=== PATIENT | male | born 1940 | race Caucasian/White ===

== ENCOUNTER 2018-06-25 06:46 | Inpatient (IN) ==
[2018-06-25 09:40] LABS: INR 0.89; PROTIME 12.8 Seconds (11.0-16.0)
--- NOTE | 2018-06-25 10:50 | Diag Imaging Result Doc PS360 ---
EXAM: CHEST-2 VIEWS 06/25/2018 HISTORY: POST BIOPSY TECHNIQUE: Expiratory chest COMMENT: There is a fairly decent sized pneumothorax on the left which on the inspiratory view measures in excess of 6.5 cm from the apex. There is also some atelectasis and possible hemorrhage within the left upper lobe. No apparent pleural fluid collections are present. IMPRESSION: Left pneumothorax. This report was discussed with Dr. Emily Olivier on 06/25/2018 at 1046 and was readback. Electronically signed by Flip Chaves 06/25/2018 10:48 AM
--- NOTE | 2018-06-25 11:02 | Diag Imaging Result Doc PS360 ---
EXAM: CT GUIDED BIOPSY LUNG 06/25/2018 HISTORY: BX HEATHER TECHNIQUE: CT-guided biopsy of the left upper lobe COMMENT: The risks and benefits of the procedure including the possibility of bleeding, infection, reaction to lidocaine, and pneumothorax was discussed with the patient and he agreed to the procedure. Following sterile preparation of the skin anterolaterally in the left chest and administration 1% lidocaine to the skin and deeper soft tissues, a coaxial 20-gauge core biopsy needle was employed to obtain four cores from the nodule in the left upper lobe. The procedure was complicated with a pneumothorax which was evident on the postprocedural radiographs. Otherwise the patient tolerated the procedure well. IMPRESSION: Successful CT-guided biopsy of the left upper lobe complicated by pneumothorax. Electronically signed by Flip Chaves 06/25/2018 11:00 AM
[2018-06-25] MEDS ORDERED: ZOFRAN IV PRN (11:55)
[2018-06-25] MEDS ORDERED: NORCO-7.5 PO PRN (11:55)
[2018-06-25] MEDS ORDERED: TYLENOL PO PRN (11:55)
[2018-06-25 12:19] LABS: BASO# 0.05 X1000 (0.0-0.2); BASO% 0.9 % (0.0-0.8); EOS# 0.15 X1000 (0.0-0.7); EOS% 2.6 % (0.0-10.0); HEMATOCRIT 41.2 % (42.0-52.0); HEMOGLOBIN 13.7 g/dL (14.0-18.0); IMM GRAN# 0.02 X1000 (0.0-0.04); IMM GRAN% 0.3 % (0.0-0.5); LYMPH# 1.36 X1000 (1.2-3.4); LYMPH% 23.3 % (20.5-51.1); MCH 32.2 PG (27-31); MCHC 33.3 g/dL (33-37); MCV 96.7 FL (81-99); MONO# 0.67 X1000 (0.11-0.59); MONO% 11.5 % (1.7-9.3); MPV 9.5 FL (7.4-10.4); NEUT# 3.59 X1000 (1.4-6.5); NEUT% 61.4 % (42.2-75.2); PLT 226 X1000 (130-400); RBC 4.26 XMIL (4.7-6.1); RDW 13.6 % (11.5-14.5); WBC 5.84 X1000 (4.8-10.8)
--- NOTE | 2018-06-25 12:25 | GENERAL SURGERY CONSULTATION ---
DATE: 06/25/2018 REQUESTING PHYSICIAN: Hospitalist. REASON FOR CONSULTATION: Left pneumothorax status post CT-guided lung biopsy. BRIEF HISTORY: A 77-year-old male who had abnormal chest CT scan and chest x-ray that showed a mass in his left lung. He came for a CT-guided biopsy. He did develop a pneumothorax that is expanding. It was felt that he needed a chest tube placement. The risks, benefits, and alternatives were discussed. All questions answered. PAST MEDICAL HISTORY: Includes 1. Benign prostatic hypertrophy. 2. Chronic obstructive pulmonary disease. 3. Lung mass. PAST SURGICAL HISTORY: Includes bilateral cataracts. FAMILY HISTORY: Reviewed with the patient and noncontributory. SOCIAL HISTORY: Smoker. CURRENT MEDICATIONS: Reviewed. ALLERGIES: None. REVIEW OF SYSTEMS: A full 10 point review of systems obtained, negative as specified in HPI. PHYSICAL EXAMINATION: Vital Signs: The patient is currently afebrile. His vital signs are stable. General: No acute distress. male, looks stated age. HEENT: Normocephalic, atraumatic. Pupils equal, round, react to light. Mucous membranes moist. Oropharynx benign. Neck: Supple. Trachea midline. Cardiovascular: Regular rate and rhythm. Lungs: Decreased breath sounds noted on the left. Abdomen: Soft, nontender, nondistended. Extremities: Moves all extremities. Neurologic: Grossly intact. Skin: No signs of jaundice. Vascular: All extremities perfused. LABORATORY: None. Chest x-ray reviewed and CT scan reviewed, left pneumothorax. ASSESSMENT AND PLAN: A 77-year-old with left pneumothorax. At this time, we will place a chest tube. Discussed the risks, benefits, and alternatives. We will get consent. cc: Daryl Valentine MD
--- NOTE | 2018-06-25 12:26 | Diag Imaging Result Doc PS360 ---
EXAM: CHEST-PORTABLE 06/25/2018 HISTORY: POST OP LUNG TECHNIQUE: AP portable erect at 1215 COMMENT: There is a small caliber tube placed in the left pleural space with near complete evacuation of the pneumothorax which was previously present. There is residual increased density throughout the left upper lobe which may be result of hemorrhage. Otherwise the appearance of the chest has not changed significantly since the previous examination. IMPRESSION: Near resolution of left pneumothorax. Electronically signed by Flip Chaves 06/25/2018 12:24 PM
[2018-06-25 12:30] LABS: INR 0.93; PROTIME 13.3 Seconds (11.0-16.0); PTT 35.7 Seconds (22.3-41.8)
--- NOTE | 2018-06-25 12:33 | OPERATIVE NOTE ---
PROCEDURE DATE: 06/25/2018 PREOPERATIVE DIAGNOSIS: Left pneumothorax. POSTOPERATIVE DIAGNOSIS: Left pneumothorax. PROCEDURES: Placement of left chest tube (8-Green[place]ic chest tube). SURGEON: Daryl Valentine MD. ENVIRONMENTAL MONITORING SPECIALIST: None. ANESTHESIA: Local administered by the surgeon. INTRAOPERATIVE FINDINGS: As dictated. COMPLICATIONS: None at the time of dictation. ESTIMATED BLOOD LOSS: 2 mL. SPECIMENS REMOVED: None. BRIEF HISTORY: 77-year-old who had a pneumothorax after CT-guided biopsy felt he needed a chest tube. The risks, benefits, and alternatives were discussed. All questions answered. DESCRIPTION OF PROCEDURE: After informed consent was obtained, patient remained in the PACU holding area. His left chest was prepped and draped in sterile fashion after a formal time-out confirming patient, date and procedure. We turned our attention to the left chest wall. We prepped and draped this area in a sterile fashion. Under local anesthetic I made a small stab incision in the 5th intercostal space, directed the needle into the chest, encountered air, passed the catheter in. We had exchange of air. We secured it in place connected to the atrium and to suction. Air bubbled out and then ceased became without any air leak. The patient tolerated the procedure well and had a sterile dressing applied. cc: Daryl Valentine MD
[2018-06-25 12:40] LABS: AGAP 9; ALB/GLOB RATIO 1.2; ALBUMIN 3.8 g/dL (3.5-5.0); ALKALINE PHOSPHATASE 90 U/L (32-122); BUN 10 mg/dL (8-22); CHLORIDE 100 mmol/L (98-107); COSMO 273; CREATININE 0.6 mg/dL (0.7-1.2); ESTIMATED GFR > 60; GLUCOSE 99 mg/dL (70-104); GOT 16 U/L (10-34); GPT 10 U/L (10-44); MAGNESIUM 1.7 mg/dL (1.5-2.7); POTASSIUM 4.4 mmol/L (3.5-5.1); SODIUM 137 mmol/L (136-145); TCO2 28 mmol/L (25-35); TOTAL BILIRUBIN 0.87 mg/dL (0.20-1.00); TOTAL PROTEIN 6.9 g/dL (6.3-8.3)
--- NOTE | 2018-06-25 12:40 | EKG Report ---
Test Performed on : 06/25/2018 12:22:21 PM Test Reason : pneumothorax Blood Pressure : / mmHG Vent. Rate : 066 BPM Atrial Rate : 066 BPM P-R Int : 166 ms QRS Dur : 082 ms QT Int : 382 ms P-R-T Axes : 084 087 069 degrees QTc Int : 400 ms Normal sinus rhythm. Normal ECG No previous ECGs available Unconfirmed Result
--- NOTE | 2018-06-25 12:42 | HISTORY AND PHYSICAL ---
PRIMARY CARE PHYSICIAN: CHELSEA Kendall CHIEF COMPLAINT: Request for direct admit due to postprocedure left pneumothorax. HISTORY OF PRESENT ILLNESS: Mr. Gagan Bear is a 77-year-old male with a medical history of COPD, no home oxygen, just inhalers, also BPH, who apparently over the past year and a half has been having issues with worsening shortness of breath but only recently went to seek assistance or medical attention for it. He was sent to Dr. Emily Olivier after a chest x-ray that was performed back in 04/2018 that showed left upper lobe lung lesion. He was then sent to Dr. Emily Olivier who planned for lung biopsy. Today he went for outpatient procedure, CT-guided left lung biopsy, and postprocedure developed about a 50% pneumothorax. Vital signs are stable. He is mildly short of breath. He is able to talk without difficulties. Dr. Valentine was immediately notified, and a postprocedure pneumothorax chest tube was placed and will be transferred to the floor. PAST MEDICAL HISTORY: 1. BPH. 2. COPD. No home oxygen, just inhalers. PAST SURGICAL HISTORY: 1. Bilateral cataract surgery. 2. Vasectomy. 3. Today had a CT-guided left lung biopsy with postprocedure chest tube placement secondary to pneumothorax. SOCIAL HISTORY: Quit smoking 3 weeks ago, but prior to that, he smoked 1 pack a day for at least 60 years. He also drinks 1 beer per day. Denies any illicit drug use. He is with his who is at the bedside, and he has been with her for 24 years. FAMILY HISTORY: He denies any medical family history. He states they all lived to old age and from old age. ALLERGIES: No known drug allergies. HOME MEDICATIONS: 1. Advair 250/50 inhaled daily. 2. Aspirin 81 mg p.o. daily. 3. Flomax 0.4 mg p.o. daily. 4. Ventolin HFA 18 g inhaled daily. REVIEW OF SYSTEMS: A 14-point review of systems were complete, and all were negative except for those mentioned in the above HPI. Jack complains of shortness of breath but no other complaints. He does state he does have some pain in that left chest area where that procedure was performed. PHYSICAL EXAMINATION: VITAL SIGNS: Temperature is 97.5, heart rate 71, respiratory rate 18, blood pressure 136/65, O2 saturation is 96% on 4 L nasal cannula. He is 5 feet 7 inches tall, 200 pounds, with a BMI of 31.3. GENERAL: Mr. Gagan Bear is a 77-year-old male. He is in no acute distress. He is able to answer questions appropriately. HEENT: Atraumatic and normocephalic. Pupils are equal, round and reactive to light. Extraocular movements were intact. Mucous membranes are moist. NECK: Trachea midline. CARDIOVASCULAR: S1, S2. Regular rate and rhythm. No rubs, gallops or murmurs. No lower extremity edema. Plus 2 dorsalis and radial pulses. Negative JVD or carotid bruits. PULMONARY: Clear to auscultation on the right. Absent breath sounds in the left upper lobe on the left and very decreased breath sounds on the left lower lobe on the left. No accessory muscle use, just very mild work of breathing. Tolerating 4 L nasal cannula. GASTROINTESTINAL: Soft, nontender and nondistended. Positive bowel sounds x4. EXTREMITIES: Moves all extremities equally with full range of motion. NEUROLOGICAL: Alert and oriented x3. Follows commands. Sensory is intact. SKIN: Warm, dry and intact. DIAGNOSTIC DATA: INR is 0.89. PTT is 34. Otherwise no other labs have been resulted. There have been several ordered. IMAGING: Back on 05/04/2018, he had a chest x-ray that was suspicious for a left upper lobe nodule. Then he had a CT that also showed a suspicious left upper lobe nodule. It also showed advanced pulmonary emphysema. Today he had a CT-guided lung biopsy of the left upper lobe nodule. It was successful but complicated postprocedure by pneumothorax. A chest x-ray reveals a left pneumothorax, and it appears to be at least around 50%. ASSESSMENT AND PLAN: 1. Postprocedure left pneumothorax with chest tube placement by Dr. Valentine. We will monitor on the Surgical Floor. Vital signs are stable. He is not in respiratory distress, only requiring 4 L of oxygen at this time. 2. Chronic obstructive pulmonary disease. No exacerbation, just mild hypoxia due to pneumothorax that was postprocedure. We will continue on 4 L of oxygen and wean as tolerated. We will do nebulizers q.6 hours. 3. Benign prostatic hypertrophy. Continue Flomax. 4. DVT prophylaxis with SCDs. 5. Tobacco abuse. Continues with the patch. We will add that to the orders. Apparently he has been quit for 3 weeks but prior to that smoked 1 pack a day for at least 60 years. 6. Left upper lobe lung nodule, suspicious. Biopsy has been obtained today. Awaiting pathology and will consult Dr. Oliiver who requested the patient be direct admitted for the pneumothorax. Dictated by CHELSEA Black for Antonio Posadas MD cc: CHELSEA Black MD I agree with the components of history, physical, assessment and plan. A separate addendum has been dictated. IMAN
--- NOTE | 2018-06-25 15:10 | HISTORY AND PHYSICAL ---
ADDENDUM: I agree with most components of history, physical, assessment and plan. In brief Mr. Bear is a 77 years old man with longstanding smoking history of about 60 pack-year tobacco smoking and recently diagnosed left upper lobe lung mass who had undergone outpatient intervention radiology-guided lung biopsy following which he had developed pneumothorax requiring emergent placement of chest tube. SUBJECTIVE: Patient appears irritated not in any acute distress. He complains of some chest discomfort at the site of insertion of chest tube. Currently vitals detect temperature of 97.5 degrees, pulse 65, respiratory rate 18, blood pressure 140/74, saturating 99% on 3 L nasal cannula. OBJECTIVE: General: Does not appear in any acute distress. He has had chills and irritated, oral cavity is moist. Lungs: Air entry bilaterally equal. No wheeze, rhonchi, or crackles. Left sided chest has chest tube placed in about 5th intercostal space lateral to midclavicular line. Abdomen: Soft, nontender. No lower extremity edema. LABS: Suggestive of no leukocytosis, hemoglobin of 13.7, platelet of 226,000. His coagulation studies are normal, normal electrolytes and normal kidney function. IMAGING: His electrocardiogram is suggestive of normal sinus rhythm. His lung biopsy is in lab. Chest x-ray previously performed after lung biopsy was suggestive of left pneumothorax. Repeat chest x-ray after chest tube had suggested near resolution of pneumothorax. ASSESSMENT AND PLAN: 1. Left pneumothorax after CT-guided lung biopsy complication status post chest tube placement, I will admit this patient while we managed chest tube surgery on board . 2. Upper lobe lung nodule on the left. Biopsy has been taken. Patient should follow up with results in Dr. Emily Olivier's clinic. 3. History of chronic obstructive pulmonary disease not in any acute exacerbation. Continue albuterol ipratropium and budesonide. 4. History of benign prostatic hypertrophy. Continue tamsulosin. 5. Continue nicotine patch for tobacco abuse. 6. Disposition. Patient remains inside the hospital for management of chest tube. Plan of care discussed with him and his at bedside, all of the questions have been answered. I will order lidocaine patch for pain at the chest tube insertion site. cc: MD IMAN Prince
[2018-06-25] MEDS: LIDODERM TOP SCH (17:29)
[2018-06-25] MEDS: DUONEB (A & A) INH SCH ×2 (18:33→22:05)
[2018-06-25] MEDS: PULMICORT INH SCH (22:05)
[2018-06-26] MEDS: DUONEB (A & A) INH SCH ×4 (03:28→22:48)
[2018-06-26 05:59] LABS: BASO# 0.05 X1000 (0.0-0.2); BASO% 0.6 % (0.0-0.8); EOS# 0.14 X1000 (0.0-0.7); EOS% 1.7 % (0.0-10.0); HEMATOCRIT 40.6 % (42.0-52.0); HEMOGLOBIN 13.2 g/dL (14.0-18.0); IMM GRAN# 0.02 X1000 (0.0-0.04); IMM GRAN% 0.2 % (0.0-0.5); LYMPH# 1.18 X1000 (1.2-3.4); LYMPH% 14.3 % (20.5-51.1); MCH 31.7 PG (27-31); MCHC 32.5 g/dL (33-37); MCV 97.6 FL (81-99); MONO# 0.92 X1000 (0.11-0.59); MONO% 11.2 % (1.7-9.3); MPV 9.9 FL (7.4-10.4); NEUT# 5.93 X1000 (1.4-6.5); PLT 220 X1000 (130-400); RBC 4.16 XMIL (4.7-6.1); RDW 13.8 % (11.5-14.5); WBC 8.24 X1000 (4.8-10.8)
--- NOTE | 2018-06-26 07:31 | GENERAL SURGERY PROGRESS NOTE ---
DATE: 06/26/2018 SUBJECTIVE: The patient seems to be doing well. Reviewed chest x-ray from yesterday. It looks like almost near resolution of the pneumothorax after the chest tube placement. He is in no respiratory distress. Chest x-ray from this morning is pending. OBJECTIVE: Vital Signs: The patient is currently afebrile. His vital signs are stable. General Examination: No acute distress. HEENT: Normocephalic, atraumatic. Pupils equal, round, reactive to light. Mucous membranes moist. Oropharynx benign. Neck: Supple. Trachea midline. Cardiovascular: Regular rate and rhythm. Lungs: Better breath sounds noted to the left. No air leak noted on the chest tube. Abdomen: Soft, nontender, nondistended. Extremities: Moves all extremities. Neurologic: Grossly intact. Skin: No signs of jaundice. Vascular: All extremities perfused. Laboratory: None this morning as of yet. Chest x-ray pending. ASSESSMENT AND PLAN: A 77-year-old with left-sided pneumothorax status post lung biopsy. Pneumothorax. At this time, given the findings on chest x-ray yesterday, we will change it to water seal. We will follow up with this morning's chest x-ray. Given the fact that he has a lung biopsy, we will keep the chest tube in until we know for sure that we got adequate tissue on the lung biopsy because if we need to get another biopsy, we can keep the chest tube in there until the results of that one are back. Otherwise, continue supportive care. cc: Daryl Valentine MD
--- NOTE | 2018-06-26 07:53 | Diag Imaging Result Doc PS360 ---
CHEST-PORTABLE - 06/26/2018 INDICATION: left pneumothorax COMPARISON: 06/25/2018 FINDINGS: Stable small bore chest tube on the left. No pneumothorax. Stable dense infiltrate in the left upper lobe. Stable severe COPD. Stable pulmonary vascular congestion. IMPRESSION: No complication or change from prior. Electronically signed by Jonatan Rogers 06/26/2018 7:51 AM
[2018-06-26] MEDS: LIDODERM TOP SCH (09:14)
[2018-06-26] MEDS: FLOMAX PO SCH (09:15)
[2018-06-26] MEDS: NICODERM PATCH TD SCH (09:15)
[2018-06-26] MEDS: ASPIRIN EC PO SCH (09:15)
[2018-06-26] MEDS: PULMICORT INH SCH ×2 (09:34→22:48)
--- NOTE | 2018-06-26 17:14 | PROGRESS NOTE ---
DATE: 06/26/2018 INTERVAL HISTORY: The repeat chest x-ray today morning had suggested total resolution of pneumothorax. Surgery team had evaluated the patient and decided to keep the chest tube to water seal, considering that we are waiting for biopsy results, and if the biopsy results sample is inadequate, he may need another lung biopsy. OBJECTIVE: Vital signs: Currently temperature 98.5 degrees, pulse 72, respiratory rate 19, blood pressure 110/46, saturating 97% on nasal cannula 4 L. General: Does not appear in any acute distress. HEENT: Oral cavity is moist. Lungs: Air entry bilaterally equal. No wheeze, rhonchi, or crackles. Heart: S1, S2 normal, no murmur, rub, or gallop. Chest: He has a left- sided chest tube. Psychiatric: He is very anxious and agitated and wants to go home. I discussed with him about keeping the chest tube until we get the biopsy results. However, he is very irritated. LABORATORY DATA: CBC with hemoglobin of 13.2, platelet of 220,000. No new electrolytes today. ASSESSMENT AND PLAN: 1. Acute left pneumothorax post procedure with status post chest tube placement by surgical team. Continue to monitor him. Currently vital signs are stable. Surgery team planning to keep the chest tube until we get the biopsy results. Wean down oxygen as tolerated. 2. Chronic obstructive pulmonary disease without any exacerbation. 3. Acute hypoxic respiratory failure. Continue oxygenation 4 L nasal cannula. Wean down as tolerated. Continue nebulization every 6 hours. 4. Benign prostatic hypertrophy. Continue home Flomax. 5. Deep vein thrombosis (DVT) prophylaxis. SCDs. 6. Tobacco abuse. Continue nicotine patch. 7. Left upper nodule. Suspicious for malignancy with extensive smoking history. Follow up with biopsy results. DISPOSITION: We are awaiting biopsy results. If the biopsy preliminary report says adequate sampling and we may not need additional sampling, then surgical team would plan taking the chest tube out, at which point we will consider discharging the patient. I am anticipating it within the next 24 to 48 hours. cc: Antonio Posadas MD
[2018-06-27] MEDS: DUONEB (A & A) INH SCH ×4 (03:46→21:14)
--- NOTE | 2018-06-27 06:27 | GENERAL SURGERY PROGRESS NOTE ---
DATE: 06/27/2018 SUBJECTIVE: The patient is doing okay. His chest x-ray yesterday looked good. OBJECTIVE: Vital Signs: The patient is currently afebrile. His vital signs are stable. General: No acute distress. HEENT: Normocephalic, atraumatic. Pupils are equal, round, and reactive to light. Mucous membranes are moist. Oropharynx benign. Neck: Supple. Trachea midline. Cardiovascular: Regular rate and rhythm. Lungs: Grossly clear. No air leak noted on chest tube. Abdomen: Soft, nontender, nondistended. Extremities: Moves all extremities. Neurologic: Grossly intact. Skin: No signs of jaundice. Vascular: All extremities perfused. DIAGNOSTIC DATA: Laboratories, none. Chest x-ray this morning pending. ASSESSMENT AND PLAN: A 77-year-old with left-sided pneumothorax status post lung biopsy. Pneumothorax. At this time, it seems to have resolved. We will talk with Pathology, see if they got enough tissue. If they did, we will try to pull the chest tube. cc: Daryl Valentine MD
[2018-06-27] MEDS: ASPIRIN EC PO SCH (08:41)
[2018-06-27] MEDS: NICODERM PATCH TD SCH (08:41)
[2018-06-27] MEDS: FLOMAX PO SCH (08:41)
[2018-06-27] MEDS: LIDODERM TOP SCH (08:41)
[2018-06-27] MEDS: PULMICORT INH SCH ×2 (09:19→21:14)
--- NOTE | 2018-06-27 14:30 | Diag Imaging Result Doc PS360 ---
EXAM: CHEST-2 VIEWS 06/27/2018 HISTORY: POST BIOPSY TECHNIQUE: Inspiratory expiratory chest COMMENT: There is a substantial pneumothorax on the left measuring up to 5.4 cm on the inspiratory view. There is peritumoral hemorrhage in the left upper lobe. At this point the patient has not experienced any hemoptysis. He is in no distress. IMPRESSION: Pneumothorax and left upper lobe hemorrhage complicating percutaneous biopsy. The previously placed chest tube on the left is to be put back to suction. Electronically signed by Flip Chaves 06/27/2018 2:28 PM
--- NOTE | 2018-06-27 15:21 | Diag Imaging Result Doc PS360 ---
EXAM: CT GUIDED BIOPSY LUNG 06/27/2018 HISTORY: lung nodule on left (previously biopsied) TECHNIQUE: CT-guided percutaneous biopsy of left upper lobe. COMMENT: The uterus and benefits of the procedure were discussed with the patient including the possibility of bleeding infection or reaction to lidocaine as well as recurrent pneumothorax. The patient has a previously placed left small caliber chest tube from the previous biopsy. Following sterile preparation the skin and administration of 1% lidocaine to the skin and deeper soft tissues a 20-gauge [place] core biopsy needle was employed to obtain four cores from the lesion. These are judged to be adequate by the pathologist. There is a recurrent pneumothorax and peritumoral hemorrhage following the biopsy. IMPRESSION: Successful percutaneous biopsy of the left upper lobe nodule, complicated by peritumoral hemorrhage and pneumothorax. Electronically signed by Flip Chaves 06/27/2018 3:18 PM
--- NOTE | 2018-06-27 19:35 | Diag Imaging Result Doc PS360 ---
CHEST-PORTABLE - 06/27/2018 7:11 PM INDICATION: Follow up pneumothorax COMPARISON: 2:16 PM FINDINGS: The left apical pneumothorax is approximately stable measuring about 7 cm maximally. This is the same value is previous. IMPRESSION: Stable moderate to large left apical pneumothorax. Stable small bore left chest tube. Electronically signed by Jonatan Rogers 06/27/2018 7:33 PM
--- NOTE | 2018-06-27 20:32 | PROGRESS NOTE ---
DATE: 06/27/2018 INTERVAL HISTORY: In the morning time, the chest x-ray suggested resolution of pneumothorax. However, the surgeon doctor had talked with the pathologist, and it was felt that previous lung biopsy specimen had reactive pulmonary parenchyma with patchy chronic inflammation, foamy macrophages, fibrosis. I was told that the pathologist had talked with the surgeon that it was inadequate, and the sample did not detect any malignancy. By the time I saw the patient, he had undergone repeat CT-guided biopsy of his chest following which he had developed a recurrence of pneumothorax. I was unaware of that, and some chest tube adjustments were made. SUBJECTIVE: The patient appears irritated. He is very jihan. Answers questions in short sentences, appears angry. We discussed about keeping the chest tube until we get subsequent x- ray. He does not appear to be in any respiratory distress. He also denies chest pain. OBJECTIVE: Vitals: Temperature 98 degrees, pulse 82, respiratory rate 18, blood pressure 114/83, saturating 96% on 3 L nasal cannula. General: Does not appear in any acute distress. Oral cavity is moist. Lungs: Air entry adequate on right hemithorax. Decreased air entry in left upper lung lobe. Adequate air entry left lower lung lobe. Abdomen: Soft, nontender. No lower extremity edema. LABORATORY DATA: No new labs today. ASSESSMENT AND PLAN: 1. Acute left pneumothorax. Postprocedure after CT-guided biopsy attempt on June 25 as an outpatient, status post chest tube since. Since the specimen did not detect malignancy of the lung nodule, a repeat chest CT-guided biopsy was performed on 06/27/2018, and the patient developed recurrent pneumothorax. Discharge tube was already in place. Surgeon on board for chest tube management. He does not have any chest pain or is not complaining of shortness of breath. He is hemodynamically stable. Continue oxygenation to maintain saturation more than 94%. 2. Tobacco abuse and history of left upper lung nodule suspicious of biopsy suspicious of malignancy. We will await biopsy results. Oncology, Dr. Olivier, is on board. 3. Chronic obstructive pulmonary disease without acute exacerbation. 4. Benign prostatic hypertrophy continue home Flomax. 5. DVT prophylaxis. SCDs. 6. Tobacco abuse. Continue nicotine patch. 7. Disposition. The patient remains inside the hospital as he has a left-sided chest tube. Once the pneumothorax resolves, surgical team would plan removing the chest tube if his biopsy sample is adequate, and at that point patient can be discharged home. Plan of care was discussed with the patient and his at bedside. All of their questions have been answered. cc: Antonio Posadas MD MTDD
[2018-06-28] MEDS ORDERED: MYLICON PO ONE (00:42)
[2018-06-28] MEDS: DUONEB (A & A) INH SCH ×4 (03:10→20:34)
--- NOTE | 2018-06-28 06:09 | GENERAL SURGERY PROGRESS NOTE ---
DATE: 06/28/2018 SUBJECTIVE: Discussed with Pathology who said they had inadequate tissue to make a full claim, so we underwent a repeat lung biopsy, did have a little small pneumothorax. Chest tube is in place it looks like on the chest x-ray, no air leak. We increased the suction to -40. OBJECTIVE: Vital Signs: Patient is currently afebrile. His vital signs stable. General: No acute distress. Cardiovascular: Regular rate and rhythm. Lungs: No increased labored breathing. No air leak noted around chest tube. Abdomen: Soft, nontender, nondistended. IMAGING: Chest x-ray pending this morning. ASSESSMENT AND PLAN: A 77-year-old with postprocedural pneumothorax after lung biopsy. Pneumothorax. At this time, we will repeat chest x-ray this morning. If lung is still down, may need to consider replacement of a small caliber chest tube with removal of the current one. Otherwise, continue current treatment. I did increase the suction. cc: Daryl Valentine MD
--- NOTE | 2018-06-28 07:27 | Diag Imaging Result Doc PS360 ---
EXAM: CHEST-PORTABLE INDICATION: Follow up pneumothorax TECHNIQUE: One view COMPARISON: 06/27/2018 FINDINGS: The left apical pneumothorax is completely stable. Left upper lobe consolidation is unchanged. No new consolidation is identified. Cardiac silhouette is stable. IMPRESSION: Stable chest. Electronically signed by Thong Yan 06/28/2018 7:25 AM
--- NOTE | 2018-06-28 08:45 | Diag Imaging Result Doc PS360 ---
EXAM: CHEST-PORTABLE INDICATION: chest tube placement TECHNIQUE: One view COMPARISON: 06/28/2018 FINDINGS: There has been replacement of the small caliber chest tube on the left, which appears to be in better position. Since placement, the left apical pneumothorax has decreased significantly in size. It now appears to occupy about 5% of the left hemithorax. Consolidation in the left midlung zone is stable. Cardiac silhouette is stable. IMPRESSION: Interval replacement of the chest tube with significant decrease in the left pneumothorax. Electronically signed by Thong Yan 06/28/2018 8:42 AM
[2018-06-28] MEDS: ASPIRIN EC PO SCH (09:06)
[2018-06-28] MEDS: FLOMAX PO SCH (09:06)
[2018-06-28] MEDS: PERIDEX MT SCH (09:08)
[2018-06-28] MEDS: LIDODERM TOP SCH (09:09)
--- NOTE | 2018-06-28 09:12 | OPERATIVE NOTE ---
PROCEDURE DATE: 06/28/2018 PREOPERATIVE DIAGNOSIS: Recurrent left pneumothorax with dislodged left chest tube. POSTOPERATIVE DIAGNOSIS: Recurrent left pneumothorax with dislodged left chest tube. PROCEDURES: 1. Removal of left chest tube. 2. Placement of a 8 Green[place]ic anterior chest tube. SURGEON: Daryl Valentine MD. EXECUTIVE CONSULTANT: None. ANESTHESIA: Local administered by the surgeon. FINDINGS: Looked like evacuation of air when we placed the chest tube to the atrium. BRIEF HISTORY: 77-year-old gentleman who had a lung biopsy. We initially placed a chest tube in which had resolution of the pneumothorax. He did need a repeat biopsy because of insufficient tissue. During the process of that they rebiopsied and reaccumulated pneumothorax. It became apparent this morning that the old chest tube had been dislodged and was not resolving the pneumothorax. Therefore, we felt we need to place a new one. The risks, benefits, and alternatives were discussed with the patient. He voiced understanding wished to proceed with procedure. DESCRIPTION OF PROCEDURE: After informed consent was obtained, patient remained in his bed. The anterior chest wall was prepped and draped in sterile fashion. Prior to this, we did remove, after cutting the sutures, the previous chest tube in one single motion. We placed a sterile dressing on top of the wound, prepped and draped the anterior chest wall in standard fashion. We used a local anesthetic to anesthetize the skin in the anterior chest wall 2nd intercostal space. We made a small stab incision, directed the catheter into the chest with a taylor of air, threaded the catheter over the needle. Air was returning through this when he breathed. We secured it in place connected to the atrium. We did have significant bubbling of air which resolved with some time. The patient remained stable. We placed a sterile dressing. He tolerated procedure well. Chest x-ray is pending. cc: Daryl Valentine MD
[2018-06-28] MEDS: PULMICORT INH SCH ×2 (09:24→20:34)
[2018-06-28] MEDS: NICODERM PATCH TD SCH ×2 (11:54→12:01)
--- NOTE | 2018-06-28 15:58 | PROGRESS NOTE ---
DATE: 06/28/2018 INTERVAL HISTORY: The patient is found to have a chest tube removed this morning. Still with pneumothorax on chest x-ray. Chest x-ray was replaced this morning by Dr. Valentine. Post placement x- ray showing still with left apical pneumothorax, but improved from previous. Other than some left lateral chest wall discomfort, patient is largely asymptomatic with no new complaints. No other acute events overnight. Still awaiting repeat pathology. REVIEW OF SYSTEMS: 12 point review of system negative as per interval history. IMAGING: Initial chest x-ray this morning with a left apical pneumothorax. Consolidation unchanged. Chest tube out. Note that for some reason initial chest x-ray is mistimed in the system as 10 o'clock. Repeat chest x-ray after chest tube placement showing significant decrease in left pneumothorax with interval replacement of chest tube. DISCHARGE VITAL SIGNS: Temperature 98.3 degrees, pulse 72, respirations 16, blood pressure 135/49, O2 saturation 98% on 2 L by nasal cannula. PHYSICAL EXAMINATION: General: No acute distress. Vitals as above. HEENT: Normocephalic, atraumatic. Moist mucous membranes. No cervical adenopathy. Cardiovascular: Regular rate and rhythm. No murmurs, rubs, or gallops. Lungs: Decreased air entry on the left upper, otherwise largely clear to auscultation. Abdomen: Soft, nontender, nondistended. Bowel sounds positive. Extremities: Peripheral pulses intact. No clubbing, cyanosis, or edema. Neurologic: Cranial nerves 2-12 grossly intact. No focal motor sensory deficits. Psychiatric: Normal mood and affect. Awake, alert, oriented x3. Skin: No new rashes or lesions identified. Chest tube in left chest wall to suction. ASSESSMENT AND PLAN: 1. Left pneumothorax: He has had 2 pneumothoraces, one after CT-guided biopsy on June 25 and again with a biopsy performed on 06/27/2018 after initial pathology was nondiagnostic. Chest tube incidentally removed at some point late 06/27/2018. Replaced by Dr. Valentine 06/28/2018. Does appear somewhat improved after repeat chest tube placement. Surgery (Dr. Valentine) on board. Now largely asymptomatic at this time. Continue monitoring. 2. Left upper lung nodule. Patient with significant smoking history. There is suspicion of malignancy. Initial biopsy nondiagnostic. Awaiting repeat biopsy results. Dr. Ortega of Oncology on board. 3. Tobacco abuse. Counseled on cessation. Given nicotine patch. 4. Chronic obstructive pulmonary disease. No evidence of exacerbation at this time. Continue to monitor. 5. Benign prostatic hypertrophy. Continue Flomax. 6. Deep vein thrombosis prophylaxis SCDs. 7. Disposition: Patient with ongoing pneumothorax and left-sided chest tube. Anticipate discharge once pneumothorax resolved and chest tube removed.
[2018-06-29] MEDS: DUONEB (A & A) INH SCH ×3 (03:10→16:13)
[2018-06-29] MEDS: PERIDEX MT SCH ×2 (04:22→09:18)
--- NOTE | 2018-06-29 06:07 | GENERAL SURGERY PROGRESS NOTE ---
DATE: 06/29/2018 SUBJECTIVE: Patient seems to be doing better. We did remove the old chest tube and place a new one. His pneumothorax improved dramatically. OBJECTIVE: Vital Signs: Patient is currently afebrile. His vital signs stable. General: No acute distress. HEENT: Normocephalic, atraumatic. Pupils equal, round, reactive to light. Mucous membranes moist. Oropharynx benign. Neck: Supple. Trachea midline. Cardiovascular: Regular rate and rhythm. Lungs: Breath sounds noted on the left side. Abdomen: Soft, nontender, nondistended. Extremities: Moves all extremities. Neurologic: Grossly intact. Skin: No signs of jaundice. Vascular: All extremities perfused. Chest tube does not have an air leak this morning. ASSESSMENT AND PLAN: A 77-year-old gentleman with pneumothorax status post lung biopsy. Status post lung biopsy with pneumothorax. At this time, we will follow up a chest x-ray. If it seems to be doing okay, may consider removing it tomorrow or later today if patient is doing really well. cc: Daryl Valentine MD
--- NOTE | 2018-06-29 07:18 | Diag Imaging Result Doc PS360 ---
EXAM: CHEST-PORTABLE 06/29/2018 HISTORY: follow up pneumothorax TECHNIQUE: AP portable at 0703 COMMENT: The pneumothorax which has been present since the second biopsy on 06/27/2018 has resolved. The second small bore chest tube is again noted over the left upper chest. There is still some hemorrhage within the left upper lobe which is secondary to the biopsy. IMPRESSION: Resolution of left pneumothorax. Electronically signed by Flip Chaves 06/29/2018 7:16 AM
[2018-06-29] MEDS: FLOMAX PO SCH (09:18)
[2018-06-29] MEDS: ASPIRIN EC PO SCH (09:18)
[2018-06-29] MEDS: LIDODERM TOP SCH (09:18)
[2018-06-29] MEDS: NICODERM PATCH TD SCH (09:31)
[2018-06-29] MEDS: PULMICORT INH SCH (10:32)
--- NOTE | 2018-06-29 12:54 | GENERAL SURGERY PROGRESS NOTE ---
DATE: 06/29/2018 SUBJECTIVE: Reviewed chest x-ray from this morning. No pneumothorax. Discussed with pathology. There appears to be enough tissue to make a diagnosis. I came up to the patient's bedside, removed the chest tube in one continuous motion with good results, held pressure. We will get a chest x-ray at 3 o'clock this afternoon. If normal from a surgical point of view, I am okay with him being discharged. cc: Daryl Valentine MD
--- NOTE | 2018-06-29 13:51 | HEMO/ONC CONSULTATION ---
DATE: 06/29/2018 CONSULTATION REQUESTED BY: Hospitalist service. CONSULTATION: Is patient known. HISTORY OF PRESENT ILLNESS: Mr. Bear is a 77-year-old male who is currently known to us as we are currently working up a left upper lobe lung nodule that is highly suspicious for cancer. Patient was actually in our office at the beginning of June and we ordered him to have a CT-guided biopsy of the nodule. While he was having the biopsy he developed a pneumothorax and has required a chest tube placement by Dr. Valentine. He is now inpatient being closely monitored so that we can ensure that the pneumothorax resolved. PAST MEDICAL HISTORY: 1. Positive for COPD. 2. BPH. 3. Tobacco abuse. SURGICAL HISTORY: 1. Bilateral cataract removal. 2. Vasectomy. 3. CT-guided left lung biopsy with requirement of a postprocedure chest tube placement due to pneumothorax. SOCIAL HISTORY: The patient is and lives with his . He is a former smoker and reports that he quit smoking back on 06/11/2018 after smoking 1 pack of cigarettes per day for 60 years. He denies any illicit drug use and only drinks socially. FAMILY HISTORY: Patient has no significant family, no history of cancer in his family. REVIEW OF SYSTEMS: Twelve point review of systems has been completed negative except for what was expressed in the HPI. Vital Signs: Temperature 98.5 degrees, heart rate 72, respirations 18, blood pressure 140/63, O2 saturation 97% on 5 L nasal cannula. General: This is a male lying in the hospital bed with O2 in place and a chest tube. He is in no acute distress. He is reading a book. HEENT: Head normocephalic, atraumatic. Pupils equal, round, reactive. Oral mucosa appears to be normal. Trachea is midline. Gross auditory acuity is intact. Cardiovascular: S1-S2 heard. No murmurs, gallops, rubs appreciated. Respiratory: Chest is essentially clear. He has no rhonchi, rales or wheezing noted. Gastrointestinal: Abdomen soft. Positive bowel sounds. Musculoskeletal: No bony abnormalities. Extremities: No edema. Skin: No rashes noted. Neurologic: Patient is alert and oriented. No focal motor deficits noted. LABS AND STUDIES: White blood cells 8.24, hemoglobin 13.2, hematocrit 40.6, platelet count 220,000. Chest x-ray from earlier shows a chest tube in place on the left with no pneumothorax. ASSESSMENT AND PLAN: 1. Left upper lobe nodule status post biopsy. Pathology is currently pending. Will need to have pathology prior to being able to talk about any treatments. 2. Pneumothorax. Patient has a chest tube in place. Management will be by Dr. Valentine from general surgery. 3. Chronic obstructive pulmonary disease. No exacerbation noted. He is only on O2 support due to having the pneumothorax. 4. Tobacco abuse. Continue to encourage his tobacco cessation. 5. Disposition. From our standpoint, the patient can be discharged home once okay with the primary team and Dr. Valentine. He will follow up with us as an outpatient to review biopsy results and discuss further treatment. We want to thank you for consulting us on Mr. Bear while he is here at [facility]. We will continue to follow along and adjust our treatment plan per his hospital course. Dictated by TRE Palmer for Jaime Bradley MD cc: Jaime Bradley MD
--- NOTE | 2018-06-29 15:12 | Diag Imaging Result Doc PS360 ---
EXAM: CHEST-PORTABLE 06/29/2018 HISTORY: removal of left chest tube TECHNIQUE: AP portable upright at 1457 COMMENT: The small caliber chest tube which was present at 0703 has been removed. There is no evidence of recurrence of the pneumothorax. There are no apparent pleural fluid collections. There is still some increased density in the left upper lobe presumably from post biopsy hemorrhage. IMPRESSION: No evidence of recurrent pneumothorax. Electronically signed by Flip Chaves 06/29/2018 3:10 PM
[2018-06-29 16:12] VITALS: BP 117/53
--- NOTE | 2018-06-29 18:57 | DISCHARGE SUMMARY ---
ADMISSION DATE: 06/25/2018 DISCHARGE DATE: 06/29/2018 DISCHARGE DIAGNOSIS: Pneumothorax, status post CT guided biopsy. CONSULTATIONS: Daryl Valentine M.D. PROCEDURES: Placement of left chest tube, thoracostomy tube, one on 06/25/2018 and one on 06/28/2018. HOSPITAL COURSE: Briefly, this is a 77-year-old gentleman. He underwent CT-guided lung biopsy. He does have history of COPD, which showed a lung lesion, and he had an outpatient CT-guided biopsy for after which he developed a 50% pneumothorax. Dr. Valentine was consulted and placed a small bore chest tube or an 8-[place] Korean chest tube. The patient improved lung biopsies as specimen was obtained, which did not show cancer at this point, but the left lung biopsy did show non-small cell carcinoma because I think he had a repeat biopsy unfortunately. The patient was followed by Dr. Valentine. He was placed on water-seal. He underwent a second lung biopsy on the , but then I think he had some bleeding afterwards. Chest x-ray after that showed a moderate to large left apical pneumothorax, and he had a second tube placed on the , which was a small bore 8-[place] tube, and pneumothorax resolved. He had some left upper lobe consolidation, possibly from re- expansion edema. On the , the pneumothorax had resolved. He still had a little bit of a chest tube there, but that was removed per Dr. Valentine, and then he had a repeat chest x-ray around 1500 today, which showed no residual pneumothorax after the chest tube was pulled. Plan will be to discharge patient 95% on room air. He is breathing comfortably. Hemoglobin and hematocrit were 13 and 40, last 1 was checked on the . He will need to follow up closely with CHELSEA Kendall, Dr. Valentine and Dr. Olivier. I would recommend a chest x-ray next week just to make sure that there has not been any re-expansion and Dr. Olivier will need to decide about further treatment options for his non-small cell lung cancer. TIME SPENT: 32 minutes. Case discussed with the patient. cc: Quang Jeffers MD
== END 2018-06-29 17:22 | disposition home or self-care (01) | DRG 199 ==
LOC: SURHOLD 06:46 → OPS 06:46 → SUATTDRO 12:14 → OBSVTOIN 12:14 → 4N 15:39
PROVIDERS: ATTEND Internal Medicine
CPT/HCPCS: 32405; 71010; 71020; 71045; 71046; 77012; 80053; 83735; 85025; 85610; 85730; 88305; 88313; 93005; 93010; 94640; 94761; 94799; A9270; J2405

== ENCOUNTER 2018-11-28 07:13 | Day surgery (SDC) ==
[2018-11-22 10:42] LABS: HEMATOCRIT 43.2 % (42.0-52.0); HEMOGLOBIN 14.6 g/dL (14.0-18.0); MCH 32.9 PG (27-31); MCHC 33.8 g/dL (33-37); MCV 97.3 FL (81-99); MPV 9.5 FL (7.4-10.4); RBC 4.44 XMIL (4.7-6.1); RDW 14.4 % (11.5-14.5); WBC 6.53 X1000 (4.8-10.8)
[2018-11-22 10:52] LABS: INR 1.01; PROTIME 13.4 Seconds (11.0-16.0); PTT 33.6 Seconds (22.3-41.8)
[2018-11-22 11:15] LABS: AGAP 10; BUN 13 mg/dL (8-22); CALCIUM 9.4 mg/dL (8.8-10.2); CHLORIDE 96 mmol/L (98-107); COSMO 269; CREATININE 0.8 mg/dL (0.7-1.2); ESTIMATED GFR > 60; GLUCOSE 106 mg/dL (70-104); POTASSIUM 4.9 mmol/L (3.5-5.1); SODIUM 134 mmol/L (136-145); TCO2 28 mmol/L (25-35)
[2018-11-28] MEDS ORDERED: DIPRIVAN 1% ONE ×2 (07:39→10:43)
[2018-11-28] MEDS ORDERED: FENTANYL ONE (07:39)
[2018-11-28] MEDS ORDERED: XYLOCAINE-MPF 2% ONE (07:46)
[2018-11-28] MEDS ORDERED: QUELICIN (DOSE) ONE (07:46)
[2018-11-28] MEDS ORDERED: ZEMURON ONE ×2 (07:46→10:54)
[2018-11-28] MEDS ORDERED: KEFZOL 1 GM/D5W 2 GM/100 ML IVPB ONE (07:55)
[2018-11-28] MEDS ORDERED: LR 1,000 ML ONE ×2 (07:55→09:16)
[2018-11-28] MEDS ORDERED: SENSORCAINE 0.25%/EPI 1:200,000 ONE (09:16)
[2018-11-28] MEDS ORDERED: B & O 16A SUPP ONE (09:16)
[2018-11-28] MEDS ORDERED: DUONEB (A & A) ONE (09:47)
[2018-11-28] MEDS ORDERED: ZOFRAN ONE (10:54)
[2018-11-28] MEDS ORDERED: ROBINUL ONE (10:54)
[2018-11-28] MEDS ORDERED: NEOSTIGMINE ONE ×2 (10:55→12:24)
[2018-11-28] MEDS ORDERED: EPHEDRINE ONE (10:56)
[2018-11-28 10:58] LABS: URINE SOURCE CATH
[2018-11-28 11:04] LABS: BILIRUBIN URINE NEGATIVE (NEGATIVE); BLOOD URINE MODERATE (NEGATIVE); COLOR YELLOW; GLUCOSE URINE NEGATIVE (NEGATIVE); KETONE URINE NEGATIVE (NEGATIVE); LEUKOCYTES URINE NEGATIVE (NEGATIVE); NITRITE URINE NEGATIVE (NEGATIVE); PROTEIN URINE 50 mg/dL (NEGATIVE); SP GRAVITY URINE 1.016; TURBIDITY URINE HAZY (CLEAR); UROBILINOGEN URINE NORMAL (NORMAL)
[2018-11-28 11:11] LABS: UR EPITHELIAL CELLS >10 /HPF (<10); URINE BACTERIA NEGATIVE /HPF; URINE WBC <10 /HPF (<10)
[2018-11-28 11:18] LABS: URINE YEAST NONE SEEN
[2018-11-28] MEDS ORDERED: NS 1,000 ML ONE (13:17)
[2018-11-28] MEDS ORDERED: MORPHINE IV PRN (13:46)
[2018-11-28] MEDS ORDERED: NORCO-10 PO PRN (14:00)
[2018-11-28] MEDS ORDERED: LABETALOL IV PRN (14:00)
[2018-11-28] MEDS: NS 1,000 ML IV SCH ×3 (14:00→20:27)
[2018-11-28] MEDS ORDERED: BENADRYL IV PRN (14:00)
[2018-11-28] MEDS ORDERED: DILAUDID IV PRN (14:00)
[2018-11-28] MEDS ORDERED: B & O 15A SUPP PR PRN (14:00)
[2018-11-28] MEDS ORDERED: ZOFRAN IV PRN (14:00)
[2018-11-28] MEDS ORDERED: TYLENOL PO PRN (14:00)
[2018-11-28] MEDS ORDERED: PHENERGAN PO PRN (14:00)
[2018-11-28] MEDS ORDERED: OFIRMEV 1000 MG/ISOTONIC SOLN 1,000 MG/100 ML BOTTLE IV PRN (14:00)
[2018-11-28] MEDS ORDERED: SODIUM CHLORIDE 0.9% INJ PRN (14:00)
[2018-11-28] MEDS ORDERED: DITROPAN PO PRN (14:00)
[2018-11-28] MEDS ORDERED: NORCO-5 PO PRN (14:00)
[2018-11-28] MEDS ORDERED: PHENERGAN PR PRN (14:00)
[2018-11-28] MEDS ORDERED: BENADRYL LIQUID PO PRN (14:00)
[2018-11-28] MEDS ORDERED: PHENERGAN IV PRN (14:00)
[2018-11-28] MEDS: KEFZOL 2 GM/D5W 2 GM/50 ML IVPB IV SCH (17:40)
[2018-11-28] MEDS: NORCO-7.5 PO PRN (20:28)
[2018-11-28] MEDS: PERIDEX MT SCH (20:28)
[2018-11-28] MEDS: COLACE PO SCH (20:28)
[2018-11-28] MEDS: VENTOLIN HFA INH PRN (20:30)
[2018-11-29] MEDS: NORCO-7.5 PO PRN (02:01)
[2018-11-29] MEDS: KEFZOL 2 GM/D5W 2 GM/50 ML IVPB IV SCH (02:01)
[2018-11-29] MEDS: NS 1,000 ML IV SCH (02:04)
[2018-11-29 06:30] LABS: HEMATOCRIT 35.7 % (42.0-52.0); MCH 32.7 PG (27-31); MCHC 33.6 g/dL (33-37); MCV 97.3 FL (81-99); MPV 10.2 FL (7.4-10.4); RBC 3.67 XMIL (4.7-6.1); RDW 14.3 % (11.5-14.5); WBC 12.59 X1000 (4.8-10.8)
[2018-11-29 06:49] LABS: AGAP 7; BUN 12 mg/dL (8-22); CALCIUM 8.5 mg/dL (8.8-10.2); CHLORIDE 97 mmol/L (98-107); COSMO 264; CREATININE 0.7 mg/dL (0.7-1.2); ESTIMATED GFR > 60; GLUCOSE 124 mg/dL (70-104); POTASSIUM 4.7 mmol/L (3.5-5.1); SODIUM 131 mmol/L (136-145); TCO2 27 mmol/L (25-35)
[2018-11-29 07:44] VITALS: BP 153/55
[2018-11-29] MEDS: VENTOLIN HFA INH PRN (08:43)
[2018-11-29] MEDS: COLACE PO SCH (09:50)
[2018-11-29] MEDS: PERIDEX MT SCH (09:50)
--- NOTE | 2018-11-29 11:28 | OPERATIVE NOTE ---
PROCEDURE DATE: 11/29/2018 SURGEON: Alonso Dick MD MACHINE SHOP LEAD MAN: Raffi Méndez MD. Please note that Dr. Méndez was present during the majority of the operation and participated in the critical components. PREOPERATIVE DIAGNOSES: 1. Prostate cancer. 2. Elevated prostate-specific antigen. POSTOPERATIVE DIAGNOSES: 1. Prostate cancer. 2. Elevated prostate-specific antigen. PROCEDURE: 1. Robotic-assisted laparoscopic prostatectomy. 2. Bilateral pelvic lymph node dissection. 3. Laparoscopic urethral suspension. INDICATION: A 77-year-old male who has rising PSA over 10. He underwent prostate biopsy, revealing [place] 6 prostate adenocarcinoma. Given his elevated PSA, he was counseled on active treatment and chose to proceed with surgery. FINDINGS: Watertight vesicourethral anastomosis with 240 mL of fluid instilled. DESCRIPTION OF PROCEDURE: After obtaining informed consent, patient was brought to the operating room. Perioperative antibiotics and general endotracheal anesthesia were administered. He was placed in lithotomy position, prepped and draped in sterile fashion. An 18-[place]zerbaij[place] Knott catheter was introduced and his bladder was drained. We began by making a small stab incision in his umbilicus and introduced the Veress needle connected to a saline-filled syringe. We confirmed positive drop test, followed by aspiration of fluid in the syringe without evidence of GI contents or blood. This was followed by insufflating pneumoperitoneal pressure to 15 mmHg. We then demarcated the trocar sites in the standard prostatectomy fashion. Following that, we used 0.25% Marcaine with epinephrine for local anesthesia in amount of 10 mL at the trocar sites. We then used Bovie electrocautery to incise the skin and introduced a 12 mm supraumbilical trocar, followed by insertion of the robotic camera. The peritoneal cavity was inspected. He had quite a bit of adipose tissue. I placed him in Trendelenburg position and then was able to place the rest of the trocars under direct vision. Following that, the robot was docked. We began by making a small incision in the peritoneum approximately 3 cm above the rectum, identifying, isolating and transecting right vas deferens followed by identification and isolation of the right seminal vesicle. The same thing was performed on the left side. We then dissected anterior to vas deferens to the level of the prostate and posterior to the seminal vesicles by incising Denonvilliers' fascia and developing perirectal space. Following that, we turned our attention to dropping the bladder. I incised lateral to medial umbilical ligament on either side which gave access to the space of Retzius and allowed us to expose the endopelvic fascia. The fat was cleared off of the endopelvic fascia. The superficial dorsal venous complex was controlled with bipolar electrocautery. Deep dorsal venous complex was controlled with a 0 V-Loc suture with a periosteal elevation in a [id number] fashion. We then turned attention to the bladder neck. We identified it by gentle tugging on the Knott with the balloon in place. Monopolar cautery was used to incise the bladder at the level of the bladder neck until the Knott catheter came into the view. It was brought out and placed in anterior traction with the help of a 4th arm. The bladder neck was transected circumferentially, the prostate was further elevated anteriorly, and the dissection took place in the plane between the prostate and the bladder. This allowed us to eventually identify and bring out seminal vesicles and vas deferens into the operative field. Those were placed in anterior traction as well. We then used Hem-O-Alisson clips to reflect the neurovascular bundles at 5 and 7 o'clock. We minimized cautery use in order to save the neurovascular bundle. Following that, the apex of the prostate was transected sharply with monopolar cautery and cold scissors. I performed urethral length sparing. The prostate was delivered and eventually placed into an Endo Catch bag. The field was irrigated and hemostasis appeared to be adequate. Attention was then turned to pelvic lymph node dissection. On the patient's right side, we identified the external iliac vein to its confluence with the common iliac vein. The lymph node packet was grasped and dissected off with the following landmarks: Pelvic sidewall laterally, confluence of external and common iliac vein into common iliac vein superiorly, perivesical fat medially, obturator nerve and vessels posteriorly. I was able to directly see and preserve the obturator nerve. The lymphatic packet was then placed into the Endo Catch bag. A Surgicel hemostatic agent was placed into the lymphadenectomy bed. We then performed the same on the left side with identical margins delineated. We also placed a piece of Surgicel into the lymphadenectomy bed. We then turned attention to the Chris stitch. A 3-0 V-Loc suture was used in a running fashion to reapproximate perivesical and periurethral fascia. The suture was spared for future laparoscopic suspension. We then performed vesicourethral anastomosis with another 3-0 V-Loc suture in a running fashion in a clockwise and counterclockwise fashion, eventually cross-tying the sutures. The fresh 18-Azerbaijani Knott catheter was introduced and the vesicourethral anastomosis was tested with 240 mL of sterile fluid. It was watertight. We then decreased pneumoperitoneal pressure to 3 mmHg. There was a small amount of bleeding on the right lateral bladder wall which was controlled with cautery and a Hem-o-Alisson clip. I have also placed a remnant of Surgicel hemostatic agent over that. Upon repeat decreased pneumoperitoneal pressure to 3 mmHg, there was no evidence of active bleeding. We then undocked the robot, extended the supraumbilical incision, and delivered the prostate and lymph nodes which were previously sealed in the Endo Catch bag. The wounds were copiously irrigated. A #1 Maxon suture was used to close the fascia in a running fashion supraumbilically. A 0 Vicryl suture in a [id number]-qe-oepbe fashion was used to close the fascia of the school bus driver/teacher assistant trocar. Wounds were irrigated again and 4-0 Monocryl was used for subcuticular closure. This was followed by application of Covidien adhesive agent. He was extubated and taken to PACU for further recovery. ESTIMATED BLOOD LOSS: 400 mL. COMPLICATIONS: None. DRAINS: An 18-Azerbaij[place] Knott catheter. SPECIMENS: 1. Prostate. 2. Pelvic lymph nodes. DISPOSITION: To PACU then subsequently to the floor for observation. cc: Alonso Dick MD
== END 2018-11-29 11:55 | disposition home or self-care (01) ==
LOC: OR 07:13 → 4N 07:13 → OR 11-29 11:55
PROVIDERS: ATTEND Urology